=== PATIENT | female | born 1975 | race Caucasian/White ===

== ENCOUNTER 2020-08-06 04:05 | Emergency (ER) | payer OTHER, SELFPAY ==
[2020-08-06 04:05] VITALS: BP 132/87; PULSE 78; RESP 20; TEMP 37; O2SAT 100
--- NOTE | 2020-08-06 04:08 | ED_ITS ---
HPI - General Adult General Chief complaint: Allergic Reaction Stated complaint: Allergic reaction Time Seen by Provider: 08/06/20 04:07 Source: patient Mode of arrival: EMS Limitations: no limitations History of Present Illness HPI narrative: 45-year-old female with a history of eczema here for evaluation of a rash and swelling and itching to her face. She stated that she noticed a little bit of the symptoms yesterday but was overnight that the symptoms worsened. She has not had any problems breathing. The rash seems to be located around her face in her eyes but she also reports some rash on her upper extr emities and chest. She states that it is itching. She called EMS to bring her into the emergency department. She did receive 50 mg of IV Benadryl prior to arrival by EMS. She also had some vomiting but this was after she received the Benadryl and has not had any episodes since then. Has never anything like this in the past. She reports starting a new facial cream over the past week however she has been using it several times over the past several days and this was not new over the past 24-48 hours. Related Data Allergies Allergy/AdvReac Type Severity Reaction Status Date / Time Penicillins Allergy Unknown Verified 08/06/20 04:49 Review of Systems Constitutional Constitutional: Denies fever(s) and Denies headache(s) Eyes Eyes: Denies change in vision and Reports itchy eyes ENT Ears, Nose, Mouth, and Throat: Denies dysphagia, Denies vertigo, Denies dizziness, Denies headache(s), Denies lip swelling, Denies sore throat, Denies throat swelling and Denies tongue swelling Cardiovascular Cardiovascular: Denies chest pain and Denies dyspnea Respiratory Respiratory: Denies dyspnea Gastrointestinal Gastrointestinal: Denies change in bowel habits, Denies dysphagia and Denies nausea Musculoskeletal Musculoskeletal: Denies arthralgias and Denies myalgias Integumentary/Breasts Skin/Breast: Reports pruritus and Reports rash Neurologic Neurologic: Denies behavioral changes, Denies vertigo, Denies dizziness and Denies headache(s) Psychiatric Psychiatric: Denies behavioral changes Hematologic/Lymphatic Hematologic/Lymphatic: Denies easy bleeding and Denies easy bruising Allergic/Immunologic Allergic/Immunologic: Reports urticaria, Reports itchy eyes, Denies lip swelling, Denies throat swelling and Denies tongue swelling Patient History Medical History Eczema (Acute) Social History Smoking Status: Never smoker Exam Initial Vital Signs Initial Vital Signs: Vital Signs Temperature 98.6 F 08/06/20 04:05 Pulse Rate 78 08/06/20 04:05 Respiratory Rate 20 08/06/20 04:05 Blood Pressure 132/87 08/06/20 04:05 Pulse Oximetry 100 08/06/20 04:05 Const General: cooperative, comfortable and well developed Limitations: mental status not altered [facility] Mouth: oral mucosae normal and No drooling Eyes Periorbital: periorbital findings abnormal bilaterally periorbital swelling Conjunctivae: conjunctivae normal Resp Effort & Inspection: normal respiratory effort Auscultation: clear to auscultation bilaterally Cardio Rate: regular rate Rhythm: regular rhythm Skin Rashes: rashes noted Other: Patient with a macular papular rash with some swelling located mostly around the face and around her eyes. Has some pinpoint lesions on her left forearm and upper chest. Neuro General: patient alert and patient awake Cognition: normal cognition Speech: speech normal Extrem General: normal to inspection and capillary refill normal Psych Appearance: grossly normal and well kempt Course Orders Ordered: Discontinued Medications Famotidine (Pepcid) 20 mg in 50 mls @ 200 mls/hr IV NOW ONE Stop: 08/06/20 04:21 Last Infusion: 08/06/20 04:53 Dose: 0 mls/hr Documented by: Admin: 08/06/20 04:17 Dose: 200 mls/hr Documented by: KIRILL Methylprednisolone (Solu-Medrol 125 Mg Vial) 125 mg IV NOW ONE Stop: 08/06/20 04:08 Last Admin: 08/06/20 04:16 Dose: 125 mg Documented by: KIRILL Vital Signs Vital signs: Vital Signs - 8 hr 08/06/20 04:05 08/06/20 05:56 Temperature 98.6 F Pulse Rate 78 81 Respiratory Rate 20 20 Blood Pressure 132/87 132/87 Pulse Oximetry 100 97 Medical Decision Making ECG Data Interpretation: Patient does have rash around her face however no signs of anaphylaxis. I suspect that the vomiting that occurred was related to the Benadryl and not an anaphylactic reaction as it happened right after she received the IV dose of this medication is not happened since. Unsure what is causing her reaction. It could potentially be the new facial lotion that she has been starting over the past couple days for her eczema. She was given steroids and famotidine here in the ER and observed for a couple hours without any worsening of her symptoms. Will send patient home with a course of july roids. She was given strict return precautions. She expressed understanding and agreement. Discharge Plan Departure Patient Disposition: Home Clinical Impression: Allergic reaction Qualifiers: Encounter type: initial encounter Qualified Code(s): T78.40XA - Allergy, unspecified, initial encounter Instructions: DI for General Allergic Reactions Activity Restrictions/Additional Instructions: I do recommend that you take the steroids as directed starting tomorrow. You can also take Benadryl as directed on the container. If this is too sedating for you you can also try Zyrtec as this may help with the itching and the rash. Like we discussed you can also use of cool washcloth. You can also use topical [id number] anti-itch cream. Contact her primary provider for follow-up. Return to the emergency department for any new or worsening symptoms
[2020-08-06] MEDS: methylPREDNISolone 125 MG/2 ML VIAL IV (04:16)
[2020-08-06] MEDS: FAMOTIDINE 20 MG/50 ML PIGGYBACK 200 MG IV (04:17)
[2020-08-06 05:56] VITALS: BP 132/87; PULSE 81; RESP 20; O2SAT 97
== END 2020-08-06 06:43 | disposition home or self-care (01) ==
PROVIDERS: Emergency Provider Emergency Medicine
DX: T78.40XA Allergy, unspecified, initial encounter (principal)
CPT/HCPCS: 96365; 96375; 99283; 99284; J2930

== ENCOUNTER → 2021-03-10 08:58 | Outpatient (CLI) | payer OTHER, SELFPAY ==
--- NOTE | 2021-03-10 08:59 | DI.RAD.S_ITS ---
PROCEDURE: XR SHOULDER LT MIN 2V INDICATIONS: l shoulder pain TECHNIQUE: 3 views of the shoulder were acquired. COMPARISON: [facility], , SHOULDER MIN 2VW (RT), 07/02/2014, 13:44. FINDINGS: Bones: No fractures or dislocations. No suspicious bony lesions. Visualized ribs appear intact. Soft tissues: No suspicious soft tissue calcifications. IMPRESSION: No evidence acute bony abnormality of the left shoulder. If clinical suspicion and/or symptoms persist, further assessment with repeat plain films, or advanced imaging (e.g., CT, MRI, or bone scan) may be helpful for further assessment. Dictated by: Reed Perez M.D. on 03/10/2021 at 9:50 Approved by: Reed Perez M.D. on 03/10/2021 at 9:51
== END ==
PROVIDERS: PCP Family Medicine; Referring Provider Physician Assistant; Visit Provider Physician Assistant
DX: M25.512 Pain in left shoulder (principal)
CPT/HCPCS: 73030

== ENCOUNTER → 2024-12-29 13:47 | Outpatient (CLI) | payer OTHER, SELFPAY ==
--- NOTE | 2024-12-29 13:50 | DI.RAD.S_ITS ---
PROCEDURE: XR SHOULDER LT MIN 2V INDICATIONS: Left shoulder strain TECHNIQUE: 3 views of the shoulder were acquired. COMPARISON: [facility], CR, XR SHOULDER LT MIN 2V, 03/10/2021, 9:01. FINDINGS: Bones: No fractures or dislocations. No suspicious bony lesions. Visualized ribs appear intact. Soft tissues: No suspicious soft tissue calcifications. IMPRESSION: No visualized acute fracture or dislocation. However, if clinical concern and/or pain persist, short interval imaging followup in 7-10 days is recommended, as occult injury cannot be definitively excluded. Dictated by: Binta Floyd M.D. on 12/29/2024 at 16:20 Approved by: Binta Floyd M.D. on 12/29/2024 at 16:21
== END ==
LOC: RAD 13:48
PROVIDERS: Referring Provider Nurse Practitioner Family; Visit Provider Nurse Practitioner Family
DX: S46.912A Strain of unspecified muscle, fascia and tendon at shoulder and upper arm level, left arm, initial encounter (principal); X58.XXXA Exposure to other specified factors, initial encounter
CPT/HCPCS: 73030

== ENCOUNTER → 2025-07-17 19:14 | Outpatient (CLI) | payer OTHER, SELFPAY ==
--- NOTE | 2025-07-17 19:16 | DI.MRI.S_ITS ---
PROCEDURE: MR SHOULDER LT WO CON INDICATIONS: chronic left shoulder pain TECHNIQUE: Noncontrast oblique coronal T2 fast spin echo with fat saturation, oblique sagittal T1 spin echo and T2 fast spin echo with fat saturation, axial T1 spin echo and T2 fast spin echo with fat saturation through the shoulder. COMPARISON: [facility], CR, XR SHOULDER LT MIN 2V, 12/29/2024, 13:50. FINDINGS: Image quality: Excellent. Rotator cuff: Mild T2 signal elevation diffusely throughout the supraspinatus and infraspinatus tendons at the humeral insertion sites extending the musculotendinous junctions. Low-grade articular surface tearing of the anterior and mid supraspinatus as well as the anterior infraspinatus tendons at the humeral insertion sites extending to the musculotendinous junctions. Subscapularis and teres minor tendons are intact. No rotator cuff atrophy. Bones and bursae: No bone marrow contusions or fractures. Mild glenohumeral and acromioclavicular joint degeneration. The acromion demonstrates conventional anatomy, without an os acromiale. No pathologic subacromial-subdeltoid or subcoracoid bursal fluid is present. Capsule and soft tissues: Labrum is within normal limits The long head of the biceps tendon demonstrates normal location and morphology. The rotator interval appears normal, without fibrosis. The coracohumeral ligament is normal in thickness. IMPRESSION: 1. Supraspinatus and infraspinatus tendinopathy with superimposed low-grade tearing. No full-thickness rotator cuff tear. 2. Acromioclavicular and glenohumeral joint osteoarthritis. Dictated by: Elvia Bergman M.D. on 07/20/2025 at 11:40 Approved by: Elvia Bergman M.D. on 07/20/2025 at 11:42
== END ==
LOC: MRI 19:15
PROVIDERS: PCP Student in an Organized Health Care Education/Training Program; Referring Provider Student in an Organized Health Care Education/Training Program; Visit Provider Student in an Organized Health Care Education/Training Program
DX: S46.912A Strain of unspecified muscle, fascia and tendon at shoulder and upper arm level, left arm, initial encounter (principal); M75.112 Incomplete rotator cuff tear or rupture of left shoulder, not specified as traumatic; M19.012 Primary osteoarthritis, left shoulder; R20.2 Paresthesia of skin; X58.XXXA Exposure to other specified factors, initial encounter
CPT/HCPCS: 73221

== ENCOUNTER 2025-07-30 12:32 | Emergency (ER) | payer OTHER, SELFPAY ==
[2025-07-30 12:54] VITALS: BP 116/78; PULSE 82; RESP 16; TEMP 36.7; O2SAT 100; BMI 23.3
--- NOTE | 2025-07-30 13:38 | ED_ITS ---
HPI - Extremity Injury (Lower) <Irene Doran PA-C - Last Filed: 07/30/25 17:48> General Chief Complaint: Extremity Injury, Lower Stated Complaint: R ankle, arthritis with new pain upon pressure Time Seen by Provider: 07/30/25 13:20 Source: patient Mode of arrival: Ambulatory History of Present Illness HPI Narrative: Ms. Potter is a very pleasant 50-year-old female who denies any medical problems that presents to the emergency department with her daughter for right ankle pain x 2-3 weeks. 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 She does not recall a specific injury however she does report that she is very active and uses her elliptical for about 2 hours every day. She is now having significant pain on the outside of the right ankle that is worse with standing and weight-bearing, it is also causing her pain at night when she lays in certain positions, and even her dog brushing against it is painful. No swelling, redness, numbness tingling or weakness. No medications prior to arrival. No calf swelling or tenderness. Related Data Previous Rx's ?Medication ?Instructions ?Recorded estradiol 0.0375 mg/24 hr 1 patch transdermal 2XW #8 e a 06/12/25 semiweekly transdermal patch progesterone micronized 100 mg 100 mg PO QPM 30 days # 30 caps 06/12/25 capsule Allergies Allergy/AdvReac Type Severity Reaction Status Date / Time Penicillins Allergy Unknown Verified 07/30/25 12:54 Review of Systems <Irene Doran PA-C - Last Filed: 07/30/25 17:48> Review of Systems ROS Unobtainable: All systems reviewed & are unremarkable except as noted in HPI and below Patient History <Irene Doran PA-C - Last Filed: 07/30/25 17:48> Medical History (Updated 07/30/25 @ 15:12 by Irene Doran PA-C) Eczema Social History Smoking Status: Never smoker Smoking Status: Never smoker alcohol intake frequency: a few times a month Exam <Irene Doran PA-C - Last Filed: 07/30/25 17:48> Narrative Exam Narrative: GENERAL: 50 year old patient appears stated age. Well-developed patient, in no acute distress. HEAD: Atraumatic. Normocephalic. NECK: Trachea midline. Cervical ROM intact. CARDIOVASCULAR: Regular rate RESPIRATORY: ?Nonlabored respirations. ?Speaking in clear, full sentences. ? EXTREMITIES: TTP Right ankle lateral malleolus and just distal to the lateral malleolus as well. No edema, erythema, ecchymosis or deformities. No medial ankle tenderness. 2+ DP and PT pulse. Brisk cap refill in the foot. 5/5 plantar and dorsiflexion strength. No calf swelling or tenderness. NEURO: AOx3. ?Clear speech. ?Moves all 4 extremities appropriately. SKIN: No rash or erythema of visible areas Initial Vital Signs Initial Vital Signs: Vital Signs Temperature 98.1 F 07/30/25 12:54 Pulse Rate 82 07/30/25 12:54 Respiratory Rate 16 07/30/25 12:54 Blood Pressure 116/78 07/30/25 12:54 Pulse Oximetry 100 07/30/25 12:54 Oxygen Delivery Method Room Air 07/30/25 12:54 <Bennett Coy MD - Last Filed: 07/30/25 18:03> Initial Vital Signs Initial Vital Signs: Vital Signs Temperature 98.1 F 07/30/25 12:54 Pulse Rate 82 07/30/25 12:54 Respiratory Rate 16 07/30/25 12:54 Blood Pressure 116/78 07/30/25 12:54 Pulse Oximetry 100 07/30/25 12:54 Oxygen Delivery Method Room Air 07/30/25 12:54 Course <rIene Doran PA-C - Last Filed: 07/30/25 17:48> Orders Ordered: ED Orders 07/30/25 13:44 XR ankle RT min 3V Stat Discontinued Medications Naproxen (Naproxen 250 Mg Tablet) 250 mg PO NOW ONE Stop: 07/30/25 13:45 Last Admin: 07/30/25 15:18 Dose: 250 mg Documented By: JESSICA Vital Signs Vital signs: Vital Signs - 8 hr 07/30/25 12:54 07/30/25 15:35 Temperature 98.1 F Pulse Rate 82 79 Respiratory Rate 16 Blood Pressure 116/78 129/77 Pulse Oximetry 100 96 Oxygen Delivery Method Room Air <Bennett Coy MD - Last Filed: 07/30/25 18:03> Orders Ordered: ED Orders 07/30/25 13:44 XR ankle RT min 3V Stat Discontinued Medications Naproxen (Naproxen 250 Mg Tablet) 250 mg PO NOW ONE Stop: 07/30/25 13:45 Last Admin: 07/30/25 15:18 Dose: 250 mg Documented By: JESSICA Vital Signs Vital signs: Vital Signs - 8 hr 07/30/25 12:54 07/30/25 15:35 Temperature 98.1 F Pulse Rate 82 79 Respiratory Rate 16 Blood Pressure 116/78 129/77 Pulse Oximetry 100 96 Oxygen Delivery Method Room Air MDM - Extremity Injury (Lower) <Irene Doran PA-C - Last Filed: 07/30/25 17:48> Medical Records Attestation: I reviewed the patient's medical records. Imaging Data XR Right Ankle: Radiologist's Impression: PROCEDURE: XR ANKLE RT MIN 3V INDICATIONS: LATERAL right ankle pain TECHNIQUE: 3 views of the ankle were acquired. COMPARISON: None. FINDINGS: Bones: No acute fractures or dislocations. Small corticated ossification adjacent to the lateral malleolar tip is likely the sequela of a remote prior avulsion injury. Ankle mortise is normally aligned. No suspicious bony lesions. Soft tissues: No tibiotalar joint effusion. Achilles tendon appears normal. IMPRESSION: No acute osseous abnormality. If there is continued clinical concern or persistent symptoms, repeat radiographs or cross-sectional imaging (e.g. CT, MRI) may be helpful for further evaluation. Approved by: Jeremy Muro M.D. on 07/30/2025 at 14:10 [facility] Narrative Medical decision making narrative: 50-year-old female who denies any medical problems that presents to the emergency department with her daughter for right ankle pain times 2-3 weeks. Differential diagnosis includes but not limited to right ankle sprain, strain, tendinitis, overuse injury, fracture, etc. On exam patient is in no acute distress, nontoxic-appearing, all vital signs within normal limits. She is tenderness to palpation of the lateral right ankle with no specific injury. No edema, erythema or increased warmth. We will obtain x-ray right ankle and treat pain with naproxen. X-ray right ankle reveals no acute osseous abnormality however the patient does have a small corticated ossification adjacent to the lateral malleolar tip which is likely the sequelae of a remote prior avulsion injury. Discussed with the patient my concern for an overuse injury of the lateral ankle with possible history of ligament injury/avulsion. She was placed into a right ankle air splint, provided with crutches, and advised RICE therapy, weight-bearing as tolerated, ibuprofen and acetaminophen, and following up with [facility] for further management. Patient verbalized understanding of all information is agreeable with the plan. She is stable for discharge home with her daughter. Discharge Plan Departure Patient Disposition: Home Clinical Impression: Avulsion injury of right ankle region, Sprain of lateral ligament of ankle joint, Overuse injury Instructions: DI for Ankle Pain Activity Restrictions/Additional Instructions: Dear Abbey, Thank you for coming to the emergency department. Today you were evaluated for right ankle pain. Your x-ray showed an old ossified bone fragment of the right ankle which is likely due to an old ligament injury. Please follow up with [facility] for further evaluation and management. Please only weight bear on the leg as tolerated, use crutches if needed. Please use RICE therapy for your pain in addition to ibuprofen/acetaminophen. Rest the painful area. Ice the area of pain/swelling for at least 15 minutes, 4x a day. Compress the area of swelling using a brace, wrap, or splint if applied. Elevate the painful or swollen extremity by supporting it above the level of the heart with pillows when sitting or laying. Please take Ibuprofen (Motrin/Advil) or Acetaminophen (Tylenol) for pain. These are available over the counter. You may take Ibuprofen 600 mg every 8 hours with food for pain. You may also take Acetaminophen 650 mg every 4-6 hours for pain. Do not exceed 3000 mg of Tylenol a day as this can cause liver damage. Do not drink alcohol with either of these medications. Please follow up with your primary care doctor within the next 2-3 days for ER follow-up. (If you do not have a PCP you can call [phone]. ?to schedule an appointment with an [facility] Primary Care Provider) IF YOU DEVELOP ANY NEW OR WORSENING SYMPTOMS, RETURN TO THE ER! Please read the attached instructions, they highlight more specific treatments and interventions for you at home. Thank you for letting me participate in your care, Irene Doran PA-C Prescriptions: No Action estradiol 0.0375 mg/24 hr patch semiweekly 1 patch transdermal 2XW Qty: 8 3RF Rx Instructions: apply 1 patch for 3 days alternating with 1 patch for 4 days each week for 3 wks per 4-wk cycle progesterone micronized 100 mg capsule 100 mg PO QPM 30 Days Qty: 30 3RF Referrals: Prema Diggs DO [Physician, Orthopedic Surgery] Referral Note: Right ankle injury Denise Valverde MD [Primary Care Provider, Family Practice] Stand Alone Forms: Patient Portal/API ED Sign-out <Bennett Coy MD - Last Filed: 07/30/25 18:03> Cosign ED Attending Cosignature Attestation: I was immediately available in the department for consultation. ?This documentation has been reviewed and I agree with assessment and plan. Supervised by Bennett Coy MD
--- NOTE | 2025-07-30 13:44 | DI.RAD.S_ITS ---
PROCEDURE: XR ANKLE RT MIN 3V INDICATIONS: LATERAL right ankle pain TECHNIQUE: 3 views of the ankle were acquired. COMPARISON: None. FINDINGS: Bones: No acute fractures or dislocations. Small corticated ossification adjacent to the lateral malleolar tip is likely the sequela of a remote prior avulsion injury. Ankle mortise is normally aligned. No suspicious bony lesions. Soft tissues: No tibiotalar joint effusion. Achilles tendon appears normal. IMPRESSION: No acute osseous abnormality. If there is continued clinical concern or persistent symptoms, repeat radiographs or cross-sectional imaging (e.g. CT, MRI) may be helpful for further evaluation. Approved by: Jeremy Muro M.D. on 07/30/2025 at 14:10
[2025-07-30] MEDS: NAPROXEN 250 MG TABLET PO (15:18)
[2025-07-30 15:35] VITALS: BP 129/77; PULSE 79; O2SAT 96
== END 2025-07-30 15:35 | disposition home or self-care (01) ==
PROVIDERS: Emergency Provider Physician Assistant; PCP Student in an Organized Health Care Education/Training Program
DX: S93.491A Sprain of other ligament of right ankle, initial encounter (principal); S99.911A Unspecified injury of right ankle, initial encounter; X50.3XXA Overexertion from repetitive movements, initial encounter
CPT/HCPCS: 73610; 99283